=== PATIENT | female | born 2000 | race Hispanic/Latino ===

== ENCOUNTER 2022-09-20 21:51 | Emergency (ER) | payer OTHER ==
[2022-09-21 00:03] LABS: Specific Gravity 1.029 (1.005-1.030)
[2022-09-21 00:20] LABS: Specific Gravity 1.029 (1.005-1.030); Urine Bacteria None Seen /HPF (<20); Urine Bilirubin NEGATIVE (Negative); Urine Blood 3+ (OVER) (Negative); Urine Clarity Clear (Clear); Urine Color Light-Yellow (Yellow); Urine Glucose NEGATIVE (Negative); Urine Mucus Slight /HPF (None Seen); Urine Protein NEGATIVE (Negative); Urine Urobilinogen 1+ (Normal)
[2022-09-21] MEDS ORDERED: KETOROLAC 30 MG/ML INJ ONE (00:39)
[2022-09-21] MEDS ORDERED: HYDROCODONE/APAP 5/325 MG TAB ONE (00:39)
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
[2022-09-21 02:43] VITALS: BP 112/60; TEMP 98.2; O2SAT 99
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
== END 2022-09-21 02:37 | disposition home or self-care (01) ==
LOC: ER 21:51
DX: S39.91XA Unspecified injury of abdomen, initial encounter (principal); V43.52XA Car driver injured in collision with other type car in traffic accident, initial encounter; Y93.89 Activity, other specified; Y92.410 Unspecified street and highway as the place of occurrence of the external cause
CPT/HCPCS: 81001; 81025; 74177; 71046; 72040; 96374; 99284; Q9967